=== PATIENT | female | born 1935 | race Caucasian/White ===

== ENCOUNTER 2016-11-20 07:15 | Inpatient (IN) | payer OTHER ==
[~2016-11-20] VITALS: Ht 142.2 cm; Wt 51.4 kg
[2016-11-20] MEDS ORDERED: LOSA50TA37 PO (07:21)
[2016-11-20] MEDS ORDERED: LEVO75 PO (07:21)
[2016-11-20] MEDS ORDERED: MEMA5 PO (07:21)
[2016-11-20] MEDS ORDERED: ASPI-556 PO (07:21)
[2016-11-20] MEDS ORDERED: SIMV-260 PO (07:21)
[2016-11-20] MEDS ORDERED: ZOLP5 PO (07:21)
[2016-11-20] MEDS ORDERED: ALBU8HFA4 IH (07:21)
[2016-11-20] MEDS ORDERED: OMEP20 PO (07:21)
[2016-11-20] MEDS ORDERED: ALBUTEROL SULFATE 2.5 MG/0.5 ML NEB SOLUTION NEB ONE (08:00)
[2016-11-20] MEDS ORDERED: MethylPREDNISolone SOD SUCC 125 MG/2 ML VIAL IVP ONE (08:00)
[2016-11-20] MEDS ORDERED: IPRATROPIUM BROMIDE 0.5 MG/2.5 ML NEB SOLUTION NEB ONE (08:00)
[2016-11-20 08:16] LABS: BASOPHILS % (AUTO) 0.2 % (0.0-2.0); EOSINOPHILS % (AUTO) 1.7 % (1.0-6.0); HEMATOCRIT 37.7 % (36-46); HEMOGLOBIN 12.3 g/dL (12.0-16.0); LYMPHOCYTES # (AUTO) 1.7 K/uL (1.0-4.8); LYMPHOCYTES % (AUTO) 17.1 % (22.0-44.0); MEAN CORPUSCULAR HEMOGLOBIN 29.1 pg (26.0-34.0); MEAN CORPUSCULAR HGB CONC 32.7 G/dL (31.0-37.0); MEAN CORPUSCULAR VOLUME 89 fL (80-100); MONOCYTES # (AUTO) 0.8 K/uL (0.1-1.0); MONOCYTES % (AUTO) 8.5 % (2.0-9.0); NEUTROPHILS # (AUTO) 7.1 K/uL (1.8-7.7); NEUTROPHILS % (AUTO) 72.5 % (40.0-70.0); PLATELET COUNT (AUTO) 314 K/uL (150-450); RED BLOOD CELL COUNT(AUTO) 4.24 MIL/uL (4.00-5.20); RED CELL DISTRIBUTION WIDTH 13.7 % (11.5-14.5); WHITE BLOOD COUNT (AUTO) 9.9 K/uL (4.5-11.0)
[2016-11-20 08:23] LABS: ANION GAP 5 mmol/L (8-16); CALCIUM, TOTAL 8.5 mg/dL (8.8-10.5); CARBON DIOXIDE 33 mmol/L (22-29); CHLORIDE 101 mmol/L (98-107); CREATININE 0.89 mg/dL (0.60-1.30); GLOMERULAR FILTR. RATE CALC > 60 mL/min (>60); POTASSIUM 3.7 mmol/L (3.5-5.1); SODIUM SERUM 139 mmol/L (136-145); UREA NITROGEN, BLOOD 17 mg/dL (7-18)
[2016-11-20 08:25] LABS: PROTHROMBIN TIME 10.7 SEC (9.4-11.6)
[2016-11-20 08:29] LABS: ALANINE AMINOTRANSFERASE 32 U/L (12-78); ALBUMIN 3.1 g/dL (3.4-5.0); ASPARTATE AMINOTRANSFERASE 27 U/L (15-37); BILIRUBIN,TOTAL 0.7 mg/dL (0.1-1.0); CREATINE KINASE, TOTAL 50 U/L (26-192); TOTAL PROTEIN, SERUM 6.6 g/dL (6.4-8.2)
[2016-11-20 08:34] LABS: B-TYPE NATRIURETIC PEPTIDE 398 pg/mL (0-100)
[2016-11-20] MEDS ORDERED: ZOLPIDEM TARTRATE 5 MG TABLET PO PRN (10:00)
[2016-11-20] MEDS: IPRATROPIUM BROMIDE 0.5 MG/2.5 ML NEB SOLUTION NEB SCH ×2 (10:00→16:15)
[2016-11-20] MEDS ORDERED: ALBUTEROL SULFATE 2.5 MG/0.5 ML NEB SOLUTION NEB PRN (10:00)
[2016-11-20] MEDS ORDERED: ACETAMINOPHEN 325 MG TABLET PO PRN (10:00)
[2016-11-20] MEDS ORDERED: ONDANSETRON HCL 4 MG/2 ML VIAL IVP PRN (10:00)
[2016-11-20] MEDS ORDERED: MAGNESIUM HYDROXIDE SUSPENSION 30 ML UDCUP PO PRN (10:00)
[2016-11-20] MEDS ORDERED: OxyCODONE HCL/ACETAMINOPHEN 5-325 MG TABLET PO PRN (10:00)
[2016-11-20] MEDS ORDERED: BISACODYL 10 MG RECTAL RECTAL SUPPOSITORY PR PRN (10:00)
[2016-11-20] MEDS: ALBUTEROL SULFATE 2.5 MG/0.5 ML NEB SOLUTION NEB SCH ×2 (10:00→16:15)
[2016-11-20 10:01] LABS: APPEARANCE,URINE CLEAR (CLEAR); GLUCOSE, URINE (UA) NEGATIVE (NEGATIVE); KETONES,URINE NEGATIVE (NEGATIVE); LEUKOCYTE ESTERASE ,URINE NEGATIVE (NEGATIVE); OCCULT BLOOD,URINE NEGATIVE (NEGATIVE); PROTEIN,URINE NEGATIVE (NEGATIVE)
[2016-11-20 10:05] LABS: ADD UA MICROSCOPIC NO
[2016-11-20] MEDS ORDERED: 0.9% SODIUM CHLORIDE 5 ML NEB SOLUTION NEB ONE (10:25)
[2016-11-20] MEDS ORDERED: CloNIDine HCL 0.2 MG TABLET PO ONE (11:00)
[2016-11-20] MEDS ORDERED: LEVOFLOXACIN 500 MG/D5% WATER 100 ML IV ONE (11:00)
[2016-11-20] MEDS ORDERED: LORazepam 1 MG TABLET PO ONE (13:45)
[2016-11-20] MEDS ORDERED: SODIUM CHLORIDE 0.9% 1,000 ML IV ONE ×2 (15:14→17:35)
[2016-11-20 15:24] VITALS: BP 86/47
[2016-11-20] MEDS ORDERED: SODIUM CHLORIDE 0.9% 500 ML IV ONE (17:30)
[2016-11-20] MEDS: HEPARIN SODIUM,PORCINE 5,000 UNITS/ML VIAL SQ SCH (18:11)
[2016-11-20 18:37] VITALS: BP 137/57
[2016-11-20 18:39] VITALS: BP 137/57
[2016-11-20 20:52] VITALS: BP 164/82
[2016-11-20 23:39] VITALS: BP 152/85
[2016-11-21] VITALS (7 sets, daily range): BP systolic 130–182; BP diastolic 64–85
[2016-11-21] MEDS: HEPARIN SODIUM,PORCINE 5,000 UNITS/ML VIAL SQ SCH ×4 (00:04→17:03)
[2016-11-21] MEDS: ALBUTEROL SULFATE 2.5 MG/0.5 ML NEB SOLUTION NEB SCH ×4 (02:37→19:26)
[2016-11-21] MEDS: IPRATROPIUM BROMIDE 0.5 MG/2.5 ML NEB SOLUTION NEB SCH ×4 (02:37→19:26)
[2016-11-21 07:34] LABS: BASOPHILS % (AUTO) 0.6 % (0.0-2.0); EOSINOPHILS % (AUTO) 0 % (1.0-6.0); HEMATOCRIT 32.3 % (36-46); HEMOGLOBIN 10.6 g/dL (12.0-16.0); LYMPHOCYTES # (AUTO) 0.9 K/uL (1.0-4.8); MEAN CORPUSCULAR HEMOGLOBIN 29.4 pg (26.0-34.0); MEAN CORPUSCULAR HGB CONC 32.8 G/dL (31.0-37.0); MEAN CORPUSCULAR VOLUME 90 fL (80-100); MONOCYTES # (AUTO) 0.5 K/uL (0.1-1.0); MONOCYTES % (AUTO) 6.7 % (2.0-9.0); NEUTROPHILS # (AUTO) 6.4 K/uL (1.8-7.7); NEUTROPHILS % (AUTO) 80.7 % (40.0-70.0); PLATELET COUNT (AUTO) 260 K/uL (150-450); RED CELL DISTRIBUTION WIDTH 13.8 % (11.5-14.5); WHITE BLOOD COUNT (AUTO) 7.9 K/uL (4.5-11.0)
[2016-11-21 08:07] LABS: ALANINE AMINOTRANSFERASE 22 U/L (12-78); ALBUMIN 2.6 g/dL (3.4-5.0); ANION GAP 8 mmol/L (8-16); ASPARTATE AMINOTRANSFERASE 18 U/L (15-37); BILIRUBIN,TOTAL 0.5 mg/dL (0.1-1.0); CALCIUM, TOTAL 7.5 mg/dL (8.8-10.5); CARBON DIOXIDE 28 mmol/L (22-29); CHLORIDE 103 mmol/L (98-107); CREATININE 0.89 mg/dL (0.60-1.30); GLOMERULAR FILTR. RATE CALC > 60 mL/min (>60); SODIUM SERUM 139 mmol/L (136-145); TOTAL PROTEIN, SERUM 5.5 g/dL (6.4-8.2); UREA NITROGEN, BLOOD 18 mg/dL (7-18)
[2016-11-21] MEDS: TIMOLOL MALEATE 0.5% 5 ML OPHTHALMIC SOLUTION OU SCH ×2 (08:29→20:07)
[2016-11-21] MEDS: PANTOPRAZOLE SODIUM 40 MG DR TABLET PO SCH (08:30)
[2016-11-21] MEDS ORDERED: SODIUM CHLORIDE 0.9% 250 ML IV ONE (10:59)
[2016-11-21] MEDS: LOSARTAN POTASSIUM 50 MG TABLET PO SCH (11:01)
[2016-11-21] MEDS: LEVOTHYROXINE SODIUM 75 MCG TABLET PO SCH (11:01)
[2016-11-21] MEDS: LEVOFLOXACIN 500 MG/D5% WATER 100 ML IV SCH (11:01)
[2016-11-21] MEDS ORDERED: SIMVASTATIN 20 MG TABLET PO SCH (21:00)
[2016-11-21] MEDS ORDERED: LATANOPROST 0.005% 2.5 ML OPHTHALMIC SOLUTION OU SCH (21:00)
[2016-11-22] MEDS: HEPARIN SODIUM,PORCINE 5,000 UNITS/ML VIAL SQ SCH ×2 (00:04→08:42)
[2016-11-22] MEDS: IPRATROPIUM BROMIDE 0.5 MG/2.5 ML NEB SOLUTION NEB SCH ×2 (02:19→07:17)
[2016-11-22] MEDS: ALBUTEROL SULFATE 2.5 MG/0.5 ML NEB SOLUTION NEB SCH ×2 (02:19→07:17)
[2016-11-22 05:08] VITALS: BP 157/91
[2016-11-22] MEDS: LEVOTHYROXINE SODIUM 75 MCG TABLET PO SCH (05:38)
[2016-11-22 06:24] LABS: BASOPHILS # (AUTO) 0.09 K/uL (0.00-0.20); BASOPHILS % (AUTO) 0.7 % (0.0-2.0); EOSINOPHILS % (AUTO) 2.59 % (1.0-6.0); HEMATOCRIT 35.6 % (36-46); HEMOGLOBIN 11.8 g/dL (12.0-16.0); LYMPHOCYTES % (AUTO) 17.5 % (22.0-44.0); MEAN CORPUSCULAR HEMOGLOBIN 29.3 pg (26.0-34.0); MEAN CORPUSCULAR HGB CONC 33.1 G/dL (31.0-37.0); MEAN CORPUSCULAR VOLUME 89 fL (80-100); MONOCYTES # (AUTO) 0.6 K/uL (0.1-1.0); MONOCYTES % (AUTO) 4.9 % (2.0-9.0); NEUTROPHILS # (AUTO) 8.7 K/uL (1.8-7.7); NEUTROPHILS % (AUTO) 74.3 % (40.0-70.0); PLATELET COUNT (AUTO) 290 K/uL (150-450); RED BLOOD CELL COUNT(AUTO) 4.02 MIL/uL (4.00-5.20); RED CELL DISTRIBUTION WIDTH 13.4 % (11.5-14.5); WHITE BLOOD COUNT (AUTO) 11.7 K/uL (4.5-11.0)
[2016-11-22 07:00] LABS: IRON, SERUM 92 mcg/dL (50-175); TOTAL IRON BINDING CAPACITY 189 mcg/dL (250-450)
[2016-11-22 07:06] VITALS: BP 188/83
[2016-11-22 07:07] LABS: ALANINE AMINOTRANSFERASE 14 U/L (12-78); ALBUMIN 2.6 g/dL (3.4-5.0); ANION GAP 5 mmol/L (8-16); ASPARTATE AMINOTRANSFERASE 17 U/L (15-37); BILIRUBIN,TOTAL 0.5 mg/dL (0.1-1.0); CARBON DIOXIDE 31 mmol/L (22-29); CHLORIDE 102 mmol/L (98-107); CREATININE 0.86 mg/dL (0.60-1.30); GLOMERULAR FILTR. RATE CALC > 60 mL/min (>60); POTASSIUM 3.8 mmol/L (3.5-5.1); SODIUM SERUM 138 mmol/L (136-145); THYROID STIMULATING HORMONE 7.44 uIU/mL (0.36-3.74); TOTAL PROTEIN, SERUM 5.5 g/dL (6.4-8.2); UREA NITROGEN, BLOOD 15 mg/dL (7-18)
[2016-11-22] MEDS: TIMOLOL MALEATE 0.5% 5 ML OPHTHALMIC SOLUTION OU SCH (08:45)
[2016-11-22] MEDS: LOSARTAN POTASSIUM 50 MG TABLET PO SCH (08:46)
[2016-11-22] MEDS: PANTOPRAZOLE SODIUM 40 MG DR TABLET PO SCH (08:46)
[2016-11-22] MEDS ORDERED: ASPIRIN 81 MG EC TABLET PO SCH (09:00)
[2016-11-22] MEDS ORDERED: MEMANTINE HCL 5 MG TABLET PO SCH (09:00)
[2016-11-22] MEDS: LEVOFLOXACIN 500 MG/D5% WATER 100 ML IV SCH (10:26)
[2016-11-22 11:13] VITALS: BP 155/77
[2016-11-22] MEDS ORDERED: LEVO500 PO (11:59)
== END 2016-11-22 14:15 | disposition home or self-care (01) | DRG 140 ==
LOC: EMS 07:17 → AHU 12:49 → 5N 20:25
PROVIDERS: ADMIT Hospitalist; ATTEND Hospitalist
DX: J44.1 Chronic obstructive pulmonary disease with (acute) exacerbation (principal); E44.0 Moderate protein-calorie malnutrition; F03.90 Unspecified dementia, unspecified severity, without behavioral disturbance, psychotic disturbance, mood disturbance, and anxiety; J44.0 Chronic obstructive pulmonary disease with (acute) lower respiratory infection; J20.9 Acute bronchitis, unspecified; J45.909 Unspecified asthma, uncomplicated; F41.9 Anxiety disorder, unspecified; E78.5 Hyperlipidemia, unspecified; I10 Essential (primary) hypertension; E03.9 Hypothyroidism, unspecified; H40.9 Unspecified glaucoma; D64.9 Anemia, unspecified; I25.10 Atherosclerotic heart disease of native coronary artery without angina pectoris; I70.0 Atherosclerosis of aorta; Z79.899 Other long term (current) drug therapy; Z79.82 Long term (current) use of aspirin; Z90.49 Acquired absence of other specified parts of digestive tract; Z90.710 Acquired absence of both cervix and uterus
CPT/HCPCS: 82607; 82746; 83540; 83550; 84443; 87081; 93005; 94640; 96365; 96375; 99285; J1644; J1956; J2930; J7030; J7040; J7050

== ENCOUNTER 2017-09-08 23:45 | Inpatient (IN) | payer OTHER ==
[~2017-09-08] VITALS: Ht 152.4 cm; Wt 57.2 kg
[~2017-09-08 23:45] MED LIST: ALBU8HFA4 IH; ALEN70TA48 PO; ASPI-556 PO; ATOR10TA84 PO; DONE5TAB5 PO; LEVO500 PO; LEVO75 PO; LOSA50TA37 PO; MEMA5 PO; OMEP20 PO; QUET25TA PO; SIMV-260 PO; TEMA15CA PO; ZOLP5 PO
[2017-09-09] MEDS ORDERED: 0.9% SODIUM CHLORIDE 5 ML NEB SOLUTION NEB ONE
[2017-09-09] MEDS ORDERED: IPRATROPIUM BROMIDE 0.5 MG/2.5 ML NEB SOLUTION NEB ONE
[2017-09-09] MEDS ORDERED: ALBUTEROL SULFATE 5 MG/ML 20 ML NEB SOLN [BULK] NEB ONE
[2017-09-09 00:06] LABS: BASOPHILS # (AUTO) 0.03 K/uL (0.00-0.20); BASOPHILS % (AUTO) 0.5 % (0.0-2.0); EOSINOPHILS # (AUTO) 0.27 K/uL (0.00-0.70); EOSINOPHILS % (AUTO) 4.81 % (1.0-6.0); HEMATOCRIT 31.4 % (36-46); HEMOGLOBIN 10.2 g/dL (12.0-16.0); LYMPHOCYTES # (AUTO) 1.4 K/uL (1.0-4.8); LYMPHOCYTES % (AUTO) 24.7 % (22.0-44.0); MEAN CORPUSCULAR HGB CONC 32.4 G/dL (31.0-37.0); MEAN CORPUSCULAR VOLUME 92 fL (80-100); MONOCYTES # (AUTO) 0.6 K/uL (0.1-1.0); MONOCYTES % (AUTO) 10.9 % (2.0-9.0); NEUTROPHILS # (AUTO) 3.3 K/uL (1.8-7.7); NEUTROPHILS % (AUTO) 59.1 % (40.0-70.0); PLATELET COUNT (AUTO) 190 K/uL (150-450); RED BLOOD CELL COUNT(AUTO) 3.39 MIL/uL (4.00-5.20); RED CELL DISTRIBUTION WIDTH 14.4 % (11.5-14.5); WHITE BLOOD COUNT (AUTO) 5.6 K/uL (4.5-11.0)
[2017-09-09 00:15] LABS: INR 1.1 (0.9-1.1); PROTHROMBIN TIME 11.1 SEC (9.4-11.6)
[2017-09-09 00:16] LABS: ANION GAP 0 mmol/L (8-16); CALCIUM, TOTAL 7.8 mg/dL (8.8-10.5); CARBON DIOXIDE 34 mmol/L (22-29); CHLORIDE 108 mmol/L (98-107); CREATININE 1.04 mg/dL (0.60-1.30); GLOMERULAR FILTR. RATE CALC 51 mL/min (>60); POTASSIUM 4.7 mmol/L (3.5-5.1); SODIUM SERUM 142 mmol/L (136-145); UREA NITROGEN, BLOOD 30 mg/dL (7-18)
[2017-09-09 00:22] LABS: ALANINE AMINOTRANSFERASE 17 U/L (12-78); ALBUMIN 2.9 g/dL (3.4-5.0); ASPARTATE AMINOTRANSFERASE 16 U/L (15-37); BILIRUBIN,TOTAL 0.2 mg/dL (0.1-1.0); CREATINE KINASE, TOTAL 41 U/L (26-192); TOTAL PROTEIN, SERUM 5.6 g/dL (6.4-8.2)
[2017-09-09 00:29] LABS: B-TYPE NATRIURETIC PEPTIDE 119 pg/mL (0-100)
[2017-09-09 00:43] LABS: APPEARANCE,URINE CLEAR (CLEAR); GLUCOSE, URINE (UA) NEGATIVE (NEGATIVE); KETONES,URINE NEGATIVE (NEGATIVE); LEUKOCYTE ESTERASE ,URINE NEGATIVE (NEGATIVE); OCCULT BLOOD,URINE NEGATIVE (NEGATIVE); PH,URINE 5.5 (5.0-8.0); PROTEIN,URINE NEGATIVE (NEGATIVE)
[2017-09-09 00:46] LABS: ADD UA MICROSCOPIC NO
[2017-09-09] MEDS ORDERED: MethylPREDNISolone SOD SUCC 125 MG/2 ML VIAL IVP ONE (01:30)
[2017-09-09] MEDS ORDERED: ACETAMINOPHEN 325 MG TABLET PO PRN ×2 (02:15→08:15)
[2017-09-09] MEDS ORDERED: ONDANSETRON HCL 4 MG/2 ML VIAL IVP PRN (02:15)
[2017-09-09] MEDS ORDERED: 0.9% SODIUM CHLORIDE 10 ML SYRINGE IVP PRN (02:15)
[2017-09-09] MEDS ORDERED: MAGNESIUM HYDROXIDE SUSPENSION 30 ML UDCUP PO PRN (08:15)
[2017-09-09 08:37] VITALS: BP 156/79
[2017-09-09] MEDS: CALCIUM CIT/VITAMIN D3 200 MG-250 UNITS TABLET PO SCH ×2 (10:01→20:45)
[2017-09-09] MEDS: PANTOPRAZOLE SODIUM 40 MG DR TABLET PO SCH (10:02)
[2017-09-09] MEDS: HEPARIN SODIUM,PORCINE 5,000 UNITS/ML VIAL SQ SCH ×2 (10:02→20:44)
[2017-09-09] MEDS: DOCUSATE SODIUM 100 MG CAPSULE PO SCH ×2 (10:02→20:44)
[2017-09-09] MEDS: ASPIRIN 81 MG CHEWABLE TABLET PO SCH (10:02)
[2017-09-09] MEDS ORDERED: SODIUM CHLORIDE 0.9% 100 ML ONE (10:38)
[2017-09-09] MEDS: ALBUTEROL SULFATE 2.5 MG/0.5 ML NEB SOLUTION NEB SCH ×4 (11:00→23:23)
[2017-09-09] MEDS: IPRATROPIUM BROMIDE 0.5 MG/2.5 ML NEB SOLUTION NEB SCH ×4 (11:00→23:23)
[2017-09-09] MEDS: AZITHROMYCIN 500 MG/NS 250 ML IV SCH (11:03)
[2017-09-09 11:29] VITALS: BP 122/64
[2017-09-09] MEDS ORDERED: MethylPREDNISolone SOD SUCC 125 MG/2 ML VIAL IVP SCH (12:00)
[2017-09-09 16:30] VITALS: BP 163/86
[2017-09-09] MEDS: MethylPREDNISolone SOD SUCC 125 MG/2 ML VIAL IVP SCH (17:11)
[2017-09-09] MEDS: AmLODIPine BESYLATE 5 MG TABLET PO SCH (18:20)
[2017-09-09 20:19] VITALS: BP 146/75
[2017-09-09] MEDS ORDERED: QUEtiapine FUMARATE 25 MG TABLET PO SCH (21:00)
[2017-09-09] MEDS ORDERED: TEMAZEPAM 15 MG CAPSULE PO SCH (21:00)
[2017-09-10] MEDS: MethylPREDNISolone SOD SUCC 125 MG/2 ML VIAL IVP SCH ×3 (00:02→12:11)
[2017-09-10 00:16] VITALS: BP 153/84
[2017-09-10] MEDS: ALBUTEROL SULFATE 2.5 MG/0.5 ML NEB SOLUTION NEB SCH ×4 (03:55→13:36)
[2017-09-10] MEDS: IPRATROPIUM BROMIDE 0.5 MG/2.5 ML NEB SOLUTION NEB SCH ×4 (03:55→13:36)
[2017-09-10 04:52] VITALS: BP 165/78
[2017-09-10] MEDS: HEPARIN SODIUM,PORCINE 5,000 UNITS/ML VIAL SQ SCH (08:19)
[2017-09-10] MEDS: DOCUSATE SODIUM 100 MG CAPSULE PO SCH (08:19)
[2017-09-10] MEDS: CALCIUM CIT/VITAMIN D3 200 MG-250 UNITS TABLET PO SCH (08:19)
[2017-09-10] MEDS: AmLODIPine BESYLATE 5 MG TABLET PO SCH (08:20)
[2017-09-10] MEDS: AZITHROMYCIN 500 MG/NS 250 ML IV SCH (08:20)
[2017-09-10] MEDS: PANTOPRAZOLE SODIUM 40 MG DR TABLET PO SCH (08:20)
[2017-09-10] MEDS: ASPIRIN 81 MG CHEWABLE TABLET PO SCH (08:20)
[2017-09-10 08:54] VITALS: BP 119/70
[2017-09-10 12:19] VITALS: BP 120/56
== END 2017-09-10 15:30 | disposition home or self-care (01) | DRG 140 ==
LOC: EMS 23:46 → 5S 09-09 04:40
PROVIDERS: ADMIT Internal Medicine; ATTEND Internal Medicine
PROC: 5A09357 Assistance with Respiratory Ventilation, Less than 24 Consecutive Hours, Continuous Positive Airway Pressure (ICD-10-PCS; principal; 2017-09-09)
DX: J44.1 Chronic obstructive pulmonary disease with (acute) exacerbation (principal); J96.01 Acute respiratory failure with hypoxia; E03.9 Hypothyroidism, unspecified; E78.5 Hyperlipidemia, unspecified; F02.80 Dementia in other diseases classified elsewhere, unspecified severity, without behavioral disturbance, psychotic disturbance, mood disturbance, and anxiety; G30.9 Alzheimer's disease, unspecified; I10 Essential (primary) hypertension; Z90.49 Acquired absence of other specified parts of digestive tract; Z90.710 Acquired absence of both cervix and uterus
CPT/HCPCS: 82306; 93005; 94640; 94644; 94660; 96374; 97162; 99291; J0456; J1644; J2930; J7050

== ENCOUNTER 2018-03-04 17:40 | Inpatient (IN) | payer OTHER ==
[~2018-03-04] VITALS: Ht 142.2 cm; Wt 56.0 kg
[~2018-03-04 17:40] MED LIST changes: -ALBU8HFA4 IH; +AZIT250T9 PO; -DONE5TAB5 PO; -LEVO500 PO; -LEVO75 PO; +MEMA10TA11 PO; -MEMA5 PO; +PRED20 PO; -SIMV-260 PO; -ZOLP5 PO
[2018-03-04] MEDS ORDERED: DONE5TAB5 PO (17:52)
[2018-03-04] MEDS ORDERED: MONT10TA21 PO (17:52)
[2018-03-04] MEDS ORDERED: CLOP75TA32 PO (17:52)
[2018-03-04] MEDS ORDERED: LEVO88TA7 PO (17:52)
[2018-03-04] MEDS ORDERED: ALBU8HFA IH (17:52)
[2018-03-04] MEDS ORDERED: MECL-111 PO (17:52)
[2018-03-04] MEDS ORDERED: CALC-1009 PO (17:52)
[2018-03-04] MEDS ORDERED: UMEC62.5 IH (17:52)
[2018-03-04] MEDS ORDERED: SODIUM CHLORIDE 0.9% 1,000 ML IV ONE (18:30)
[2018-03-04] MEDS ORDERED: ONDANSETRON HCL 4 MG/2 ML VIAL IVP ONE (18:30)
[2018-03-04 18:59] LABS: BASOPHILS % (AUTO) 0.8 % (0.0-2.0); HEMATOCRIT 38.3 % (36-46); LYMPHOCYTES # (AUTO) 1.5 K/uL (1.0-4.8); LYMPHOCYTES % (AUTO) 17.3 % (22.0-44.0); MEAN CORPUSCULAR HEMOGLOBIN 29.6 pg (26.0-34.0); MEAN CORPUSCULAR HGB CONC 33.9 G/dL (31.0-37.0); MEAN CORPUSCULAR VOLUME 87 fL (80-100); MONOCYTES # (AUTO) 0.7 K/uL (0.1-1.0); MONOCYTES % (AUTO) 7.8 % (2.0-9.0); NEUTROPHILS # (AUTO) 6.2 K/uL (1.8-7.7); NEUTROPHILS % (AUTO) 72.1 % (40.0-70.0); PLATELET COUNT (AUTO) 279 K/uL (150-450); RED BLOOD CELL COUNT(AUTO) 4.39 MIL/uL (4.00-5.20); RED CELL DISTRIBUTION WIDTH 13.6 % (11.5-14.5)
[2018-03-04 19:06] LABS: CALCIUM, TOTAL 8.6 mg/dL (8.8-10.5); CREATININE 0.99 mg/dL (0.60-1.30); POTASSIUM 4.3 mmol/L (3.5-5.1)
[2018-03-04 19:09] LABS: PROTHROMBIN TIME 10.3 SEC (9.4-11.6)
[2018-03-04 19:13] LABS: ALBUMIN 3.7 g/dL (3.4-5.0); BILIRUBIN,TOTAL 0.7 mg/dL (0.1-1.0); TOTAL PROTEIN, SERUM 7.1 g/dL (6.4-8.2)
[2018-03-04] MEDS ORDERED: BARIUM SULFATE 0.1% SUSPENSION 450 ML BOTTLE PO ONE (19:45)
[2018-03-04] MEDS ORDERED: IOVERSOL 320 MG/ML 100 ML VIAL ONE (20:01)
[2018-03-04] MEDS ORDERED: ACETAMINOPHEN 325 MG TABLET PO PRN ×2 (20:15→21:15)
[2018-03-04] MEDS ORDERED: 0.9% SODIUM CHLORIDE 10 ML SYRINGE IVP PRN (20:15)
[2018-03-04] MEDS ORDERED: ONDANSETRON HCL 4 MG/2 ML VIAL IVP PRN ×2 (20:15→21:15)
[2018-03-04] MEDS ORDERED: IPRATROPIUM BROMIDE 0.5 MG/2.5 ML NEB SOLUTION NEB PRN (21:15)
[2018-03-04] MEDS ORDERED: MAGNESIUM HYDROXIDE SUSPENSION 30 ML UDCUP PO PRN (21:15)
[2018-03-04] MEDS ORDERED: DEXTROSE 5%-0.45% SODIUM CHL 1,000 ML IV SCH (21:15)
[2018-03-04] MEDS ORDERED: ALBUTEROL SULFATE 2.5 MG/0.5 ML NEB SOLUTION NEB PRN (21:15)
[2018-03-04] MEDS ORDERED: LORazepam 2 MG/ML VIAL IVP ONE (23:00)
[2018-03-04 23:35] VITALS: BP 128/69
[2018-03-05 04:45] VITALS: BP 161/88
[2018-03-05 07:49] VITALS: BP 144/80
[2018-03-05] MEDS ORDERED: DOCUSATE SODIUM 100 MG CAPSULE PO SCH (09:00)
[2018-03-05] MEDS ORDERED: HEPARIN SODIUM,PORCINE 5,000 UNITS/ML VIAL SQ SCH (09:00)
[2018-03-05] MEDS ORDERED: PANTOPRAZOLE SODIUM 40 MG/VIAL IVP SCH ×2 (09:00→09:15)
[2018-03-05] MEDS ORDERED: SODIUM CHLORIDE 0.9% 1,000 ML IV ONE (09:58)
[2018-03-05] MEDS ORDERED: LIDOCAINE HCL/PF 2% 5 ML VIAL INJ ONE (12:00)
[2018-03-05] MEDS ORDERED: PROPOFOL 1% 20 ML VIAL IVP ONE (12:00)
== END 2018-03-05 13:35 | disposition home or self-care (01) | DRG 254 ==
LOC: EMS 17:41 → UNDOADMIN 19:57 → 6N 19:57
PROVIDERS: ADMIT Internal Medicine; ATTEND Internal Medicine
PROC: 0DC58ZZ Extirpation of Matter from Esophagus, Via Natural or Artificial Opening Endoscopic (ICD-10-PCS; principal; 2018-03-05 09:30)
DX: T18.128A Food in esophagus causing other injury, initial encounter (principal); J44.9 Chronic obstructive pulmonary disease, unspecified; F03.90 Unspecified dementia, unspecified severity, without behavioral disturbance, psychotic disturbance, mood disturbance, and anxiety; K29.60 Other gastritis without bleeding; R13.10 Dysphagia, unspecified; I10 Essential (primary) hypertension; I25.10 Atherosclerotic heart disease of native coronary artery without angina pectoris; R07.0 Pain in throat; E78.00 Pure hypercholesterolemia, unspecified; K20.9 Esophagitis, unspecified; M81.0 Age-related osteoporosis without current pathological fracture; F41.9 Anxiety disorder, unspecified; Z90.49 Acquired absence of other specified parts of digestive tract; Z90.710 Acquired absence of both cervix and uterus; Z79.82 Long term (current) use of aspirin; Z79.899 Other long term (current) drug therapy; Z79.02 Long term (current) use of antithrombotics/antiplatelets; Z79.51 Long term (current) use of inhaled steroids; Z87.891 Personal history of nicotine dependence; X58.XXXA Exposure to other specified factors, initial encounter; Y93.89 Activity, other specified; Y92.89 Other specified places as the place of occurrence of the external cause; Y99.8 Other external cause status
CPT/HCPCS: 74022; 74177; 93005; 96374; 96375; 99285; C9113; J2060; J2405; J2704; J3490; J7030

== ENCOUNTER 2018-11-14 17:11 | Inpatient (IN) | payer OTHER ==
[~2018-11-14] VITALS: Ht 142.2 cm; Wt 56.5 kg
[~2018-11-14 17:11] MED LIST changes: +ALBU8HFA IH; +ALEN70TA10 PO; -ALEN70TA48 PO; -ASPI-556 PO; -AZIT250T9 PO; +CALC-1009 PO; +CLOP75TA32 PO; +DONE5TAB5 PO; +LEVO88TA7 PO; -LOSA50TA37 PO; +LOSA50TA64 PO; +MECL-111 PO; +MONT10TA21 PO; -PRED20 PO; -TEMA15CA PO; +UMEC62.5 IH
[2018-11-14] MEDS ORDERED: 0.9% SODIUM CHLORIDE 10 ML SYRINGE IVP PRN ×2 (17:30→19:45)
[2018-11-14 17:48] LABS: BASOPHILS % (AUTO) 0.4 % (0.0-2.0); EOSINOPHILS % (AUTO) 1.2 % (1.0-6.0); HEMATOCRIT 36.7 % (36-46); HEMOGLOBIN 12.3 g/dL (12.0-16.0); LYMPHOCYTES # (AUTO) 0.9 K/uL (1.0-4.8); LYMPHOCYTES % (AUTO) 9.8 % (22.0-44.0); MEAN CORPUSCULAR HEMOGLOBIN 28.4 pg (26.0-34.0); MEAN CORPUSCULAR HGB CONC 33.4 G/dL (31.0-37.0); MEAN CORPUSCULAR VOLUME 85 fL (80-100); MONOCYTES # (AUTO) 1.2 K/uL (0.1-1.0); MONOCYTES % (AUTO) 12.2 % (2.0-9.0); NEUTROPHILS # (AUTO) 7.4 K/uL (1.8-7.7); NEUTROPHILS % (AUTO) 76.4 % (40.0-70.0); PLATELET COUNT (AUTO) 196 K/uL (150-450); RED BLOOD CELL COUNT(AUTO) 4.31 MIL/uL (4.00-5.20); RED CELL DISTRIBUTION WIDTH 14.1 % (11.5-14.5)
[2018-11-14] MEDS ORDERED: ACETAMINOPHEN 500 MG TABLET PO ONE (18:00)
[2018-11-14 18:02] LABS: ANION GAP 1 mmol/L (8-16); CALCIUM, TOTAL 9.1 mg/dL (8.8-10.5); CARBON DIOXIDE 33 mmol/L (22-29); CHLORIDE 101 mmol/L (98-107); CREATININE 0.87 mg/dL (0.60-1.30); GLUCOSE,RANDOM 103 mg/dL (70-110); POTASSIUM 4.8 mmol/L (3.5-5.1); SODIUM SERUM 135 mmol/L (136-145); UREA NITROGEN, BLOOD 22 mg/dL (7-18)
[2018-11-14 18:03] LABS: GLOMERULAR FILTR. RATE CALC > 60 mL/min (>60)
[2018-11-14 18:06] LABS: APPEARANCE,URINE CLEAR (CLEAR); BILIRUBIN,URINE NEGATIVE (NEGATIVE); GLUCOSE, URINE (UA) NEGATIVE (NEGATIVE); KETONES,URINE NEGATIVE (NEGATIVE); LEUKOCYTE ESTERASE ,URINE NEGATIVE (NEGATIVE); NITRATE,URINE NEGATIVE (NEGATIVE); OCCULT BLOOD,URINE NEGATIVE (NEGATIVE); PH,URINE 5.5 (5.0-8.0); PROTEIN,URINE NEGATIVE (NEGATIVE)
[2018-11-14 18:10] LABS: LACTIC ACID 0.6 mmol/L (0.4-2.0)
[2018-11-14 18:17] LABS: ALANINE AMINOTRANSFERASE 15 U/L (12-78); ALBUMIN 3.2 g/dL (3.4-5.0); ALKALINE PHOSPHATASE 106 U/L (46-116); ASPARTATE AMINOTRANSFERASE 21 U/L (15-37); BILIRUBIN,TOTAL 1.2 mg/dL (0.1-1.0); CREATINE KINASE, TOTAL ONLY 35 U/L (26-192); TOTAL PROTEIN, SERUM 6.8 g/dL (6.4-8.2)
[2018-11-14 18:24] LABS: B-TYPE NATRIURETIC PEPTIDE 187 pg/mL (0-100)
[2018-11-14 18:37] LABS: INFLUENZA TYPE A NEGATIVE FOR TYPE A (NEGATIVE); INFLUENZA TYPE B NEGATIVE FOR TYPE B (NEGATIVE)
[2018-11-14 18:55] LABS: INR 1.1 (0.9-1.1); PROTHROMBIN TIME 11.3 SEC (9.4-11.6)
[2018-11-14] MEDS ORDERED: OSELTAMIVIR PHOSPHATE 75 MG CAPSULE PO ONE (19:45)
[2018-11-14] MEDS ORDERED: SODIUM CHLORIDE 0.9% 1,000 ML IV ONE (19:45)
[2018-11-14] MEDS ORDERED: ONDANSETRON HCL 4 MG/2 ML VIAL IVP PRN ×2 (19:45→21:30)
[2018-11-14] MEDS ORDERED: CefTRIAXone 1 GM/DEXTROSE 50 ML IV ONE (19:45)
[2018-11-14] MEDS ORDERED: ACETAMINOPHEN 325 MG TABLET PO PRN (19:45)
[2018-11-14] MEDS ORDERED: OxyCODONE HCL/ACETAMINOPHEN 5-325 MG TABLET PO PRN (21:30)
[2018-11-14] MEDS ORDERED: MAGNESIUM HYDROXIDE SUSPENSION 30 ML UDCUP PO PRN (21:30)
[2018-11-14] MEDS ORDERED: ZOLPIDEM TARTRATE 5 MG TABLET PO PRN (21:30)
[2018-11-14] MEDS ORDERED: BISACODYL 10 MG RECTAL RECTAL SUPPOSITORY PR PRN (21:30)
[2018-11-14 22:00] VITALS: BP 101/40
[2018-11-14] MEDS: SODIUM CHLORIDE 0.9% 1,000 ML IV SCH (23:34)
[2018-11-14] MEDS: DONEPEZIL HCL 5 MG TABLET PO SCH (23:34)
[2018-11-14] MEDS: MEMANTINE HCL 10 MG TABLET PO SCH (23:34)
[2018-11-14 23:45] VITALS: BP 119/66
[2018-11-15 03:59] VITALS: BP 121/49
[2018-11-15] MEDS: LEVOTHYROXINE SODIUM 88 MCG TABLET PO SCH (06:40)
[2018-11-15 07:03] LABS: BASOPHILS % (AUTO) 0.4 % (0.0-2.0); EOSINOPHILS % (AUTO) 1.7 % (1.0-6.0); HEMATOCRIT 34.8 % (36-46); HEMOGLOBIN 11.4 g/dL (12.0-16.0); LYMPHOCYTES % (AUTO) 10.4 % (22.0-44.0); MEAN CORPUSCULAR HEMOGLOBIN 28.6 pg (26.0-34.0); MEAN CORPUSCULAR HGB CONC 32.8 G/dL (31.0-37.0); MEAN CORPUSCULAR VOLUME 87 fL (80-100); MONOCYTES % (AUTO) 10.7 % (2.0-9.0); NEUTROPHILS # (AUTO) 7.1 K/uL (1.8-7.7); NEUTROPHILS % (AUTO) 76.8 % (40.0-70.0); PLATELET COUNT (AUTO) 161 K/uL (150-450); RED BLOOD CELL COUNT(AUTO) 3.99 MIL/uL (4.00-5.20); RED CELL DISTRIBUTION WIDTH 13.9 % (11.5-14.5)
[2018-11-15 07:18] LABS: ALANINE AMINOTRANSFERASE 13 U/L (12-78); ALBUMIN 2.7 g/dL (3.4-5.0); ALKALINE PHOSPHATASE 89 U/L (46-116); ANION GAP 4 mmol/L (8-16); ASPARTATE AMINOTRANSFERASE 19 U/L (15-37); BILIRUBIN,TOTAL 0.8 mg/dL (0.1-1.0); CALCIUM, TOTAL 8.1 mg/dL (8.8-10.5); CARBON DIOXIDE 32 mmol/L (22-29); CHLORIDE 106 mmol/L (98-107); CREATININE 0.64 mg/dL (0.60-1.30); GLOMERULAR FILTR. RATE CALC > 60 mL/min (>60); GLUCOSE,RANDOM 90 mg/dL (70-110); POTASSIUM 4.1 mmol/L (3.5-5.1); SODIUM SERUM 142 mmol/L (136-145); TOTAL PROTEIN, SERUM 5.9 g/dL (6.4-8.2)
[2018-11-15 07:32] VITALS: BP 116/56
[2018-11-15 07:37] LABS: UREA NITROGEN, BLOOD 17 mg/dL (7-18)
[2018-11-15] MEDS: SODIUM CHLORIDE 0.9% 1,000 ML IV SCH (08:26)
[2018-11-15] MEDS: CLOPIDOGREL BISULFATE 75 MG TABLET PO SCH (08:27)
[2018-11-15] MEDS: OSELTAMIVIR PHOSPHATE 75 MG CAPSULE PO SCH ×2 (08:27→20:27)
[2018-11-15] MEDS: QUEtiapine FUMARATE 25 MG TABLET PO SCH (08:27)
[2018-11-15] MEDS: MEMANTINE HCL 10 MG TABLET PO SCH ×2 (08:27→20:27)
[2018-11-15] MEDS: ATORVASTATIN CALCIUM 10 MG TABLET PO SCH (08:28)
[2018-11-15] MEDS: CALCIUM OYSTER SHELL 250 MG-VIT D3 125 UNITS TABLET PO SCH (08:28)
[2018-11-15] MEDS: MONTELUKAST SODIUM 10 MG TABLET PO SCH (08:28)
[2018-11-15] MEDS: MECLIZINE HCL 25 MG TABLET PO SCH (08:28)
[2018-11-15] MEDS: FAMOTIDINE 20 MG TABLET PO SCH (08:28)
[2018-11-15] MEDS: FLUTICASONE/VILANTEROL 200-25 MCG/INH INHALER [14] IH SCH (09:00)
[2018-11-15] MEDS: LOSARTAN POTASSIUM 50 MG TABLET PO SCH ×2 (09:00→15:57)
[2018-11-15 10:05] VITALS: BP 106/59
[2018-11-15 15:59] VITALS: BP 159/88
[2018-11-15] MEDS: ALBUTEROL SULFATE 2.5 MG/0.5 ML NEB SOLUTION NEB PRN (18:30)
[2018-11-15] MEDS: IPRATROPIUM BROMIDE 0.5 MG/2.5 ML NEB SOLUTION NEB PRN (18:31)
[2018-11-15 20:03] VITALS: BP 131/78
[2018-11-15] MEDS: ACETAMINOPHEN 325 MG TABLET PO PRN (20:26)
[2018-11-15] MEDS: DONEPEZIL HCL 5 MG TABLET PO SCH (20:26)
[2018-11-15 23:46] VITALS: BP 123/97
[2018-11-16 06:35] VITALS: BP 150/99
[2018-11-16] MEDS: LEVOTHYROXINE SODIUM 88 MCG TABLET PO SCH (06:39)
[2018-11-16 07:00] LABS: BASOPHILS % (AUTO) 0.4 % (0.0-2.0); HEMOGLOBIN 11.8 g/dL (12.0-16.0); LYMPHOCYTES # (AUTO) 0.8 K/uL (1.0-4.8); MEAN CORPUSCULAR HEMOGLOBIN 29.9 pg (26.0-34.0); MEAN CORPUSCULAR HGB CONC 34.8 G/dL (31.0-37.0); MEAN CORPUSCULAR VOLUME 86 fL (80-100); MONOCYTES # (AUTO) 1.1 K/uL (0.1-1.0); MONOCYTES % (AUTO) 11.7 % (2.0-9.0); NEUTROPHILS # (AUTO) 7.1 K/uL (1.8-7.7); NEUTROPHILS % (AUTO) 75.9 % (40.0-70.0); PLATELET COUNT (AUTO) 209 K/uL (150-450); RED BLOOD CELL COUNT(AUTO) 3.96 MIL/uL (4.00-5.20)
[2018-11-16 07:12] VITALS: BP 161/77
[2018-11-16 07:13] LABS: ANION GAP 4 mmol/L (8-16); CALCIUM, TOTAL 8.7 mg/dL (8.8-10.5); CARBON DIOXIDE 33 mmol/L (22-29); CHLORIDE 103 mmol/L (98-107); CREATININE 0.57 mg/dL (0.60-1.30); GLUCOSE,RANDOM 85 mg/dL (70-110); SODIUM SERUM 140 mmol/L (136-145); UREA NITROGEN, BLOOD 9 mg/dL (7-18)
[2018-11-16 07:14] LABS: GLOMERULAR FILTR. RATE CALC > 60 mL/min (>60)
[2018-11-16] MEDS: LOSARTAN POTASSIUM 50 MG TABLET PO SCH (08:55)
[2018-11-16] MEDS: ATORVASTATIN CALCIUM 10 MG TABLET PO SCH (08:55)
[2018-11-16] MEDS: MEMANTINE HCL 10 MG TABLET PO SCH ×2 (08:55→20:28)
[2018-11-16] MEDS: MECLIZINE HCL 25 MG TABLET PO SCH (08:55)
[2018-11-16] MEDS: CLOPIDOGREL BISULFATE 75 MG TABLET PO SCH (08:55)
[2018-11-16] MEDS: MONTELUKAST SODIUM 10 MG TABLET PO SCH (08:56)
[2018-11-16] MEDS: OSELTAMIVIR PHOSPHATE 75 MG CAPSULE PO SCH (08:56)
[2018-11-16] MEDS: QUEtiapine FUMARATE 25 MG TABLET PO SCH ×3 (08:56→20:41)
[2018-11-16] MEDS: FAMOTIDINE 20 MG TABLET PO SCH (08:56)
[2018-11-16] MEDS: CALCIUM OYSTER SHELL 250 MG-VIT D3 125 UNITS TABLET PO SCH (08:56)
[2018-11-16] MEDS: FLUTICASONE/VILANTEROL 200-25 MCG/INH INHALER [14] IH SCH (09:00)
[2018-11-16 11:36] VITALS: BP 137/74
[2018-11-16] MEDS: ALBUTEROL SULFATE 2.5 MG/0.5 ML NEB SOLUTION NEB PRN (11:55)
[2018-11-16] MEDS: IPRATROPIUM BROMIDE 0.5 MG/2.5 ML NEB SOLUTION NEB PRN (11:55)
[2018-11-16] MEDS ORDERED: MAGNESIUM OXIDE 400 MG TABLET PO PRN (12:00)
[2018-11-16] MEDS ORDERED: MAGNESIUM SULFATE 2 GM/WATER 50 ML IV PRN (12:00)
[2018-11-16] MEDS ORDERED: MAGNESIUM SULFATE 4 GM/WATER 100 ML IV PRN (12:00)
[2018-11-16 12:41] LABS: ALBUMIN 2.7 g/dL (3.4-5.0)
[2018-11-16 16:00] VITALS: BP 131/64
[2018-11-16 20:00] VITALS: BP 117/78
[2018-11-16] MEDS: ACETAMINOPHEN 325 MG TABLET PO PRN (20:27)
[2018-11-16] MEDS: OSELTAMIVIR PHOSPHATE 30 MG CAPSULE PO SCH (20:28)
[2018-11-16] MEDS: DONEPEZIL HCL 5 MG TABLET PO SCH (20:28)
[2018-11-17] VITALS (10 sets, daily range): BP systolic 70–158; BP diastolic 39–90
[2018-11-17] MEDS ORDERED: SODIUM CHLORIDE 0.9% 500 ML IV ONE ×2 (00:15→09:45)
[2018-11-17] MEDS: ALBUTEROL SULFATE 2.5 MG/0.5 ML NEB SOLUTION NEB PRN (01:24)
[2018-11-17] MEDS: IPRATROPIUM BROMIDE 0.5 MG/2.5 ML NEB SOLUTION NEB PRN (01:24)
[2018-11-17] MEDS: SODIUM CHLORIDE 0.9% 1,000 ML IV SCH ×2 (01:34→14:37)
[2018-11-17] MEDS: LEVOTHYROXINE SODIUM 88 MCG TABLET PO SCH (06:01)
[2018-11-17] MEDS: LOSARTAN POTASSIUM 50 MG TABLET PO SCH (08:26)
[2018-11-17] MEDS: MECLIZINE HCL 25 MG TABLET PO SCH (08:26)
[2018-11-17] MEDS: MONTELUKAST SODIUM 10 MG TABLET PO SCH (08:27)
[2018-11-17] MEDS: OSELTAMIVIR PHOSPHATE 30 MG CAPSULE PO SCH ×2 (08:27→20:41)
[2018-11-17] MEDS: CLOPIDOGREL BISULFATE 75 MG TABLET PO SCH (08:27)
[2018-11-17] MEDS: FAMOTIDINE 20 MG TABLET PO SCH (08:27)
[2018-11-17] MEDS: CALCIUM OYSTER SHELL 250 MG-VIT D3 125 UNITS TABLET PO SCH (08:28)
[2018-11-17] MEDS: FLUTICASONE/VILANTEROL 200-25 MCG/INH INHALER [14] IH SCH (08:29)
[2018-11-17] MEDS: ATORVASTATIN CALCIUM 10 MG TABLET PO SCH (08:29)
[2018-11-17] MEDS: MEMANTINE HCL 10 MG TABLET PO SCH ×2 (08:29→20:44)
[2018-11-17] MEDS: QUEtiapine FUMARATE 25 MG TABLET PO SCH (08:33)
[2018-11-17 10:59] LABS: GLUCOMETER DEV NAME(LOC) 5S.1; GLUCOSE,POINT OF CARE 107 MG/DL (70-110)
[2018-11-17] MEDS: ACETAMINOPHEN 325 MG TABLET PO PRN (20:41)
[2018-11-17] MEDS: DONEPEZIL HCL 5 MG TABLET PO SCH (20:44)
[2018-11-18 00:10] VITALS: BP 112/72
[2018-11-18] MEDS: SODIUM CHLORIDE 0.9% 1,000 ML IV SCH (03:42)
[2018-11-18 04:30] VITALS: BP 153/85
[2018-11-18] MEDS: LEVOTHYROXINE SODIUM 88 MCG TABLET PO SCH (06:15)
[2018-11-18 07:38] VITALS: BP 163/54
[2018-11-18] MEDS: CLOPIDOGREL BISULFATE 75 MG TABLET PO SCH (09:01)
[2018-11-18] MEDS: FLUTICASONE/VILANTEROL 200-25 MCG/INH INHALER [14] IH SCH (09:01)
[2018-11-18] MEDS: ATORVASTATIN CALCIUM 10 MG TABLET PO SCH (09:01)
[2018-11-18] MEDS: FAMOTIDINE 20 MG TABLET PO SCH (09:02)
[2018-11-18] MEDS: MECLIZINE HCL 25 MG TABLET PO SCH (09:02)
[2018-11-18] MEDS: OSELTAMIVIR PHOSPHATE 30 MG CAPSULE PO SCH (09:02)
[2018-11-18] MEDS: MONTELUKAST SODIUM 10 MG TABLET PO SCH (09:02)
[2018-11-18] MEDS: CALCIUM OYSTER SHELL 250 MG-VIT D3 125 UNITS TABLET PO SCH (09:03)
[2018-11-18] MEDS: MEMANTINE HCL 10 MG TABLET PO SCH (09:03)
[2018-11-18] MEDS ORDERED: OSEL30CA PO (11:35)
[2018-11-18] MEDS ORDERED: ZOLP5 PO (11:35)
== END 2018-11-18 13:05 | disposition home health service (06) | DRG 52 ==
LOC: EMS 17:12 → 5S 20:00
PROVIDERS: ADMIT Internal Medicine; ATTEND Internal Medicine
DX: G92 Toxic encephalopathy (principal); I95.9 Hypotension, unspecified; E86.0 Dehydration; E87.1 Hypo-osmolality and hyponatremia; F03.90 Unspecified dementia, unspecified severity, without behavioral disturbance, psychotic disturbance, mood disturbance, and anxiety; E05.90 Thyrotoxicosis, unspecified without thyrotoxic crisis or storm; T43.595A Adverse effect of other antipsychotics and neuroleptics, initial encounter; J11.1 Influenza due to unidentified influenza virus with other respiratory manifestations; E03.9 Hypothyroidism, unspecified; E78.5 Hyperlipidemia, unspecified; I10 Essential (primary) hypertension; K21.9 Gastro-esophageal reflux disease without esophagitis; J45.909 Unspecified asthma, uncomplicated; E78.00 Pure hypercholesterolemia, unspecified; F41.9 Anxiety disorder, unspecified; M19.90 Unspecified osteoarthritis, unspecified site; Z90.49 Acquired absence of other specified parts of digestive tract; Z90.710 Acquired absence of both cervix and uterus; Y92.098 Other place in other non-institutional residence as the place of occurrence of the external cause; Z79.899 Other long term (current) drug therapy; Z87.891 Personal history of nicotine dependence
CPT/HCPCS: 83605; 83735; 87040; 87804; 93005; 94640; 96365; 97162; G0378; J0696; J3475; J7030; J7040

== ENCOUNTER 2018-11-23 17:21 | Inpatient (IN) | payer OTHER ==
[~2018-11-23] VITALS: Ht 147.3 cm; Wt 51.5 kg
[~2018-11-23 17:21] MED LIST changes: +AMLO-511 PO; +AMOX1TAB15 PO; -MECL-111 PO; -QUET25TA PO; +ZOLP5 PO
[2018-11-23] MEDS ORDERED: METO50 PO (17:38)
[2018-11-23 18:13] LABS: BASOPHILS % (AUTO) 0.6 % (0.0-2.0); HEMATOCRIT 29.6 % (36-46); HEMOGLOBIN 9.7 g/dL (12.0-16.0); LYMPHOCYTES # (AUTO) 1.4 K/uL (1.0-4.8); LYMPHOCYTES % (AUTO) 22.7 % (22.0-44.0); MEAN CORPUSCULAR HGB CONC 32.7 G/dL (31.0-37.0); MEAN CORPUSCULAR VOLUME 86 fL (80-100); MONOCYTES # (AUTO) 0.6 K/uL (0.1-1.0); MONOCYTES % (AUTO) 9.3 % (2.0-9.0); NEUTROPHILS # (AUTO) 3.7 K/uL (1.8-7.7); NEUTROPHILS % (AUTO) 61.4 % (40.0-70.0); PLATELET COUNT (AUTO) 362 K/uL (150-450); RED BLOOD CELL COUNT(AUTO) 3.46 MIL/uL (4.00-5.20); RED CELL DISTRIBUTION WIDTH 14.3 % (11.5-14.5)
[2018-11-23 18:23] LABS: POTASSIUM 4.2 mmol/L (3.5-5.1)
[2018-11-23 18:32] LABS: ALBUMIN 2.3 g/dL (3.4-5.0); BILIRUBIN,TOTAL 0.3 mg/dL (0.1-1.0); TOTAL PROTEIN, SERUM 5.1 g/dL (6.4-8.2)
[2018-11-23] MEDS ORDERED: DOPamine HCL 400 MG/D5%-WATER 250 ML IV PRN (19:30)
[2018-11-23 20:21] LABS: INR 1.1 (0.9-1.1)
[2018-11-23] MEDS ORDERED: ONDANSETRON HCL 4 MG/2 ML VIAL IVP PRN (21:30)
[2018-11-23] MEDS ORDERED: 0.9% SODIUM CHLORIDE 10 ML SYRINGE IVP PRN ×2 (21:30→22:45)
[2018-11-23] MEDS ORDERED: ACETAMINOPHEN 325 MG TABLET PO PRN (21:30)
[2018-11-23 22:51] VITALS: BP 123/56
[2018-11-24] VITALS: BP 105/55
[2018-11-24 04:00] VITALS: BP 75/41
[2018-11-24 05:45] LABS: BASOPHILS % (AUTO) 0.7 % (0.0-2.0); EOSINOPHILS % (AUTO) 6.4 % (1.0-6.0); HEMATOCRIT 34.8 % (36-46); HEMOGLOBIN 11.4 g/dL (12.0-16.0); LYMPHOCYTES # (AUTO) 1.4 K/uL (1.0-4.8); LYMPHOCYTES % (AUTO) 18.2 % (22.0-44.0); MEAN CORPUSCULAR HEMOGLOBIN 27.9 pg (26.0-34.0); MEAN CORPUSCULAR HGB CONC 32.7 G/dL (31.0-37.0); MEAN CORPUSCULAR VOLUME 85 fL (80-100); MONOCYTES # (AUTO) 0.5 K/uL (0.1-1.0); MONOCYTES % (AUTO) 6.8 % (2.0-9.0); NEUTROPHILS # (AUTO) 5.3 K/uL (1.8-7.7); NEUTROPHILS % (AUTO) 67.9 % (40.0-70.0); PLATELET COUNT (AUTO) 455 K/uL (150-450); RED BLOOD CELL COUNT(AUTO) 4.07 MIL/uL (4.00-5.20); RED CELL DISTRIBUTION WIDTH 14.4 % (11.5-14.5)
[2018-11-24] MEDS: LEVOTHYROXINE SODIUM 88 MCG TABLET PO SCH (05:53)
[2018-11-24 06:17] LABS: B-TYPE NATRIURETIC PEPTIDE 95 pg/mL (0-100)
[2018-11-24 06:27] LABS: ALANINE AMINOTRANSFERASE 19 U/L (12-78); ALBUMIN 2.6 g/dL (3.4-5.0); ALKALINE PHOSPHATASE 80 U/L (46-116); ANION GAP 8 mmol/L (8-16); ASPARTATE AMINOTRANSFERASE 27 U/L (15-37); BILIRUBIN,TOTAL 0.3 mg/dL (0.1-1.0); CALCIUM, TOTAL 8.6 mg/dL (8.8-10.5); CARBON DIOXIDE 28 mmol/L (22-29); CHLORIDE 106 mmol/L (98-107); CREATINE KINASE, TOTAL ONLY 33 U/L (26-192); CREATININE 0.78 mg/dL (0.60-1.30); GLUCOSE,RANDOM 98 mg/dL (70-110); POTASSIUM 4.5 mmol/L (3.5-5.1); SODIUM SERUM 142 mmol/L (136-145); UREA NITROGEN, BLOOD 13 mg/dL (7-18)
[2018-11-24 06:28] LABS: GLOMERULAR FILTR. RATE CALC > 60 mL/min (>60)
[2018-11-24 08:00] VITALS: BP 149/75
[2018-11-24] MEDS: PANTOPRAZOLE SODIUM 40 MG/VIAL IVP SCH (08:51)
[2018-11-24] MEDS: AMOX TR/POT CLAV 500 MG/125 MG TABLET PO SCH ×2 (08:51→21:02)
[2018-11-24] MEDS: ATORVASTATIN CALCIUM 10 MG TABLET PO SCH (08:52)
[2018-11-24] MEDS: MEMANTINE HCL 10 MG TABLET PO SCH ×2 (08:52→21:02)
[2018-11-24] MEDS: CLOPIDOGREL BISULFATE 75 MG TABLET PO SCH (08:53)
[2018-11-24] MEDS ORDERED: DOPamine HCL 400 MG/D5%-WATER 250 ML IV PRN (11:07)
[2018-11-24 12:00] VITALS: BP 127/66
[2018-11-24 13:31] LABS: FREE T4 (FREE THYROXINE) 1.13 ng/dL (0.76-1.46); THYROID STIMULATING HORMONE 0.49 uIU/mL (0.36-3.74)
[2018-11-24 16:00] VITALS: BP 118/57
[2018-11-24 20:15] VITALS: BP 123/59
[2018-11-24] MEDS: DONEPEZIL HCL 5 MG TABLET PO SCH (21:02)
[2018-11-25 00:08] VITALS: BP 148/67
[2018-11-25 03:46] VITALS: BP 177/78
[2018-11-25] MEDS: LEVOTHYROXINE SODIUM 88 MCG TABLET PO SCH (05:37)
[2018-11-25 07:14] VITALS: BP 157/70
[2018-11-25] MEDS: CLOPIDOGREL BISULFATE 75 MG TABLET PO SCH (07:56)
[2018-11-25] MEDS: ATORVASTATIN CALCIUM 10 MG TABLET PO SCH (07:56)
[2018-11-25] MEDS: MEMANTINE HCL 10 MG TABLET PO SCH ×2 (07:56→23:18)
[2018-11-25] MEDS: DONEPEZIL HCL 5 MG TABLET PO SCH (07:56)
[2018-11-25] MEDS: PANTOPRAZOLE SODIUM 40 MG/VIAL IVP SCH (07:56)
[2018-11-25] MEDS: AMOX TR/POT CLAV 500 MG/125 MG TABLET PO SCH ×2 (07:56→23:18)
[2018-11-25 11:28] VITALS: BP 130/72
[2018-11-25 15:26] VITALS: BP 159/74
[2018-11-25 20:07] VITALS: BP 131/71
[2018-11-25] MEDS ORDERED: ZOLPIDEM TARTRATE 5 MG TABLET PO SCH (21:00)
[2018-11-26 00:39] VITALS: BP 167/71
[2018-11-26 04:28] VITALS: BP 154/97
[2018-11-26] MEDS: LEVOTHYROXINE SODIUM 88 MCG TABLET PO SCH (06:02)
[2018-11-26 07:13] VITALS: BP 126/77
[2018-11-26] MEDS: PANTOPRAZOLE SODIUM 40 MG/VIAL IVP SCH (08:45)
[2018-11-26] MEDS: ATORVASTATIN CALCIUM 10 MG TABLET PO SCH (08:46)
[2018-11-26] MEDS: CLOPIDOGREL BISULFATE 75 MG TABLET PO SCH (08:46)
[2018-11-26] MEDS: AMOX TR/POT CLAV 500 MG/125 MG TABLET PO SCH (08:46)
[2018-11-26] MEDS: MEMANTINE HCL 10 MG TABLET PO SCH (08:46)
[2018-11-26] MEDS ORDERED: MAGNESIUM OXIDE 400 MG TABLET PO ONE (10:30)
[2018-11-26] MEDS ORDERED: MAGNESIUM SULFATE 3 GM in DEXTROSE 5%-WATER 100 ML IV ONE (10:30)
[2018-11-26] MEDS ORDERED: MAGNESIUM OXIDE 400 MG TABLET ONE (10:33)
[2018-11-26 12:02] VITALS: BP 131/55
[2018-11-26] MEDS ORDERED: MAGOX PO (15:11)
[2018-11-30] MEDS ORDERED: ALENDRONATE SODIUM 70 MG TABLET PO SCH (06:30)
== END 2018-11-26 15:50 | disposition home or self-care (01) | DRG 812 ==
LOC: EMS 17:22 → ICU 21:33 → 5N 11-24 20:00
PROVIDERS: ADMIT Internal Medicine; ATTEND Internal Medicine
DX: T44.7X1A Poisoning by beta-adrenoreceptor antagonists, accidental (unintentional), initial encounter (principal); G93.41 Metabolic encephalopathy; F03.90 Unspecified dementia, unspecified severity, without behavioral disturbance, psychotic disturbance, mood disturbance, and anxiety; R00.1 Bradycardia, unspecified; E83.42 Hypomagnesemia; E05.90 Thyrotoxicosis, unspecified without thyrotoxic crisis or storm; E03.9 Hypothyroidism, unspecified; E78.00 Pure hypercholesterolemia, unspecified; J45.909 Unspecified asthma, uncomplicated; I10 Essential (primary) hypertension; F41.9 Anxiety disorder, unspecified; E78.5 Hyperlipidemia, unspecified; Z79.83 Long term (current) use of bisphosphonates; Z79.899 Other long term (current) drug therapy; Z90.710 Acquired absence of both cervix and uterus; Z90.49 Acquired absence of other specified parts of digestive tract; Z87.891 Personal history of nicotine dependence; Z82.49 Family history of ischemic heart disease and other diseases of the circulatory system
CPT/HCPCS: 83735; 84439; 84443; 87081; 93005; 96365; 99291; C9113; G0378; J1265; J3475; J7060

== ENCOUNTER 2019-08-22 21:18 | Inpatient (IN) | payer OTHER ==
[~2019-08-22] VITALS: Ht 137.2 cm; Wt 45.5 kg
[~2019-08-22 21:18] MED LIST changes: -ALEN70TA10 PO; -AMLO-511 PO; -AMOX1TAB15 PO; -ATOR10TA84 PO; +BRIN8DRO OP; -CALC-1009 PO; -CLOP75TA32 PO; -DONE5TAB5 PO; +LATA7.5D OU; -LEVO88TA7 PO; -LOSA50TA64 PO; -MEMA10TA11 PO; -MONT10TA21 PO; -UMEC62.5 IH; -ZOLP5 PO
[2019-08-22] MEDS ORDERED: LEVO88TA7 PO (21:33)
[2019-08-22] MEDS ORDERED: SODIUM CHLORIDE 0.9% 1,000 ML IV ONE (22:14)
[2019-08-22] MEDS ORDERED: ONDANSETRON HCL 4 MG/2 ML VIAL IVP ONE (22:15)
[2019-08-22 22:47] LABS: BASOPHILS % (AUTO) 0.1 % (0.0-2.0); EOSINOPHILS % (AUTO) 0.8 % (1.0-6.0); HEMATOCRIT 42.6 % (36-46); HEMOGLOBIN 14.1 g/dL (12.0-16.0); LYMPHOCYTES # (AUTO) 0.6 K/uL (1.0-4.8); LYMPHOCYTES % (AUTO) 5.4 % (22.0-44.0); MEAN CORPUSCULAR HEMOGLOBIN 29.1 pg (26.0-34.0); MEAN CORPUSCULAR HGB CONC 33.2 G/dL (31.0-37.0); MEAN CORPUSCULAR VOLUME 88 fL (80-100); MONOCYTES # (AUTO) 0.6 K/uL (0.1-1.0); MONOCYTES % (AUTO) 4.6 % (2.0-9.0); NEUTROPHILS # (AUTO) 10.6 K/uL (1.8-7.7); PLATELET COUNT (AUTO) 307 K/uL (150-450); RED BLOOD CELL COUNT(AUTO) 4.86 MIL/uL (4.00-5.20)
[2019-08-22 22:54] LABS: NEUTROPHILS % (AUTO) 89.1 % (40.0-70.0)
[2019-08-22 22:59] LABS: PROTHROMBIN TIME 10.3 SEC (9.4-11.6)
[2019-08-22 23:08] LABS: INFLUENZA TYPE A NEGATIVE FOR TYPE A (NEGATIVE); INFLUENZA TYPE B NEGATIVE FOR TYPE B (NEGATIVE)
[2019-08-22 23:08] LABS: CALCIUM, TOTAL 9.6 mg/dL (8.8-10.5); CREATININE 1.39 mg/dL (0.60-1.30); POTASSIUM 5.4 mmol/L (3.5-5.1)
[2019-08-22 23:11] LABS: PLATELET MORPHOLOGY COMMENT NORMAL
[2019-08-22] MEDS ORDERED: IOVERSOL 350 MG/ML 100 ML VIAL ONE (23:11)
[2019-08-22] MEDS ORDERED: SODIUM CHLORIDE 0.9% 100 ML ONE (23:12)
[2019-08-22 23:19] LABS: ALBUMIN 3.9 g/dL (3.4-5.0); BILIRUBIN,TOTAL 0.7 mg/dL (0.1-1.0); TOTAL PROTEIN, SERUM 7.8 g/dL (6.4-8.2)
[2019-08-23] MEDS ORDERED: GADOBUTROL 1 MMOL/ML 10 ML VIAL IVP ONE (00:15)
[2019-08-23] MEDS ORDERED: DiphenhydrAMINE HCL 50 MG/ML VIAL IVP ONE (00:30)
[2019-08-23] MEDS ORDERED: MORPHINE SULFATE 2 MG/ML SYRINGE IVP PRN ×2 (05:15→11:30)
[2019-08-23] MEDS ORDERED: ONDANSETRON HCL 4 MG/2 ML VIAL IVP PRN ×2 (05:15→11:30)
[2019-08-23] MEDS ORDERED: 0.9% SODIUM CHLORIDE 10 ML SYRINGE IVP PRN (05:15)
[2019-08-23] MEDS ORDERED: ACETAMINOPHEN 325 MG TABLET PO PRN ×2 (05:15→11:30)
[2019-08-23] MEDS: LORazepam 2 MG/ML VIAL IVP PRN ×2 (07:44→17:11)
[2019-08-23 08:04] LABS: BASOPHILS % (AUTO) 0.1 % (0.0-2.0); EOSINOPHILS % (AUTO) 1.3 % (1.0-6.0); HEMATOCRIT 37.9 % (36-46); HEMOGLOBIN 12.4 g/dL (12.0-16.0); LYMPHOCYTES # (AUTO) 0.7 K/uL (1.0-4.8); LYMPHOCYTES % (AUTO) 6.5 % (22.0-44.0); MEAN CORPUSCULAR HEMOGLOBIN 28.5 pg (26.0-34.0); MEAN CORPUSCULAR HGB CONC 32.6 G/dL (31.0-37.0); MEAN CORPUSCULAR VOLUME 87 fL (80-100); MONOCYTES # (AUTO) 0.5 K/uL (0.1-1.0); MONOCYTES % (AUTO) 4.1 % (2.0-9.0); PLATELET COUNT (AUTO) 263 K/uL (150-450); RED BLOOD CELL COUNT(AUTO) 4.34 MIL/uL (4.00-5.20)
[2019-08-23 08:17] LABS: CALCIUM, TOTAL 8.5 mg/dL (8.8-10.5); CREATININE 1.15 mg/dL (0.60-1.30); POTASSIUM 4.9 mmol/L (3.5-5.1)
[2019-08-23 08:22] LABS: ALBUMIN 3.2 g/dL (3.4-5.0); BILIRUBIN,TOTAL 0.6 mg/dL (0.1-1.0); TOTAL PROTEIN, SERUM 6.4 g/dL (6.4-8.2)
[2019-08-23] MEDS ORDERED: HYDROCODONE/ACETAMINOPHEN 5-325 MG TABLET PO PRN (11:30)
[2019-08-23] MEDS ORDERED: BISACODYL 10 MG RECTAL RECTAL SUPPOSITORY PR PRN (11:30)
[2019-08-23] MEDS ORDERED: MAGNESIUM HYDROXIDE SUSPENSION 30 ML UDCUP PO PRN (11:30)
[2019-08-23] MEDS ORDERED: ZOLPIDEM TARTRATE 5 MG TABLET PO PRN (11:30)
[2019-08-23] MEDS ORDERED: CLOP75TA3 PO (16:24)
[2019-08-23] MEDS ORDERED: DONE10TA8 PO (16:24)
[2019-08-23] MEDS ORDERED: QUET25TA PO (16:24)
[2019-08-23] MEDS ORDERED: XALA2.5OS OU (16:24)
[2019-08-23] MEDS ORDERED: QUET100T PO ×2 (16:24)
[2019-08-23] MEDS ORDERED: MEMA10TA11 PO (16:24)
[2019-08-23] MEDS ORDERED: LISI-660 PO (16:24)
[2019-08-23] MEDS ORDERED: LEVO88TA4 PO (16:24)
[2019-08-23] MEDS ORDERED: BRIN8DRO OP (16:24)
[2019-08-23] MEDS ORDERED: DONE5TAB5 PO (16:24)
[2019-08-23 16:47] VITALS: BP 169/89
[2019-08-23] MEDS: HEPARIN SODIUM,PORCINE 5,000 UNITS/ML VIAL SQ SCH ×2 (17:09→23:14)
[2019-08-23 19:48] VITALS: BP 131/59
[2019-08-23] MEDS: QUEtiapine FUMARATE 25 MG TABLET PO SCH (19:52)
[2019-08-23] MEDS: DOCUSATE SODIUM 100 MG CAPSULE PO SCH (19:52)
[2019-08-23] MEDS ORDERED: ALBUTEROL SULFATE HFA 90 MCG/PUFF 8 GM INHALER IH PRN (21:15)
[2019-08-24] VITALS (8 sets, daily range): BP systolic 103–177; BP diastolic 55–83
[2019-08-24] MEDS: LEVOTHYROXINE SODIUM 88 MCG TABLET PO SCH (05:24)
[2019-08-24] MEDS ORDERED: LEVOTHYROXINE SODIUM 88 MCG TABLET PO SCH (06:30)
[2019-08-24 07:41] LABS: APPEARANCE,URINE CLEAR (CLEAR); BILIRUBIN,URINE NEGATIVE (NEGATIVE); GLUCOSE, URINE (UA) NEGATIVE (NEGATIVE); KETONES,URINE NEGATIVE (NEGATIVE); LEUKOCYTE ESTERASE ,URINE NEGATIVE (NEGATIVE); NITRATE,URINE NEGATIVE (NEGATIVE); OCCULT BLOOD,URINE NEGATIVE (NEGATIVE); PH,URINE 5.5 (5.0-8.0); PROTEIN,URINE NEGATIVE (NEGATIVE); UROBILINOGEN,URINE 0.2 mg/dL (<=1.0)
[2019-08-24] MEDS: DOCUSATE SODIUM 100 MG CAPSULE PO SCH ×3 (09:00→21:00)
[2019-08-24] MEDS: PANTOPRAZOLE SODIUM 40 MG DR TABLET PO SCH (09:18)
[2019-08-24] MEDS: DONEPEZIL HCL 5 MG TABLET PO SCH (09:18)
[2019-08-24] MEDS: MEMANTINE HCL 10 MG TABLET PO SCH ×2 (09:18→23:30)
[2019-08-24] MEDS: HEPARIN SODIUM,PORCINE 5,000 UNITS/ML VIAL SQ SCH ×3 (09:19→23:30)
[2019-08-24] MEDS: QUEtiapine FUMARATE 25 MG TABLET PO SCH ×2 (09:19→23:32)
[2019-08-24 10:56] LABS: BASOPHILS % (AUTO) 0.6 % (0.0-2.0); EOSINOPHILS % (AUTO) 7.4 % (1.0-6.0); HEMATOCRIT 41.1 % (36-46); HEMOGLOBIN 13.8 g/dL (12.0-16.0); LYMPHOCYTES # (AUTO) 1.2 K/uL (1.0-4.8); LYMPHOCYTES % (AUTO) 23.8 % (22.0-44.0); MEAN CORPUSCULAR HEMOGLOBIN 29.5 pg (26.0-34.0); MEAN CORPUSCULAR HGB CONC 33.7 G/dL (31.0-37.0); MEAN CORPUSCULAR VOLUME 88 fL (80-100); MONOCYTES # (AUTO) 0.4 K/uL (0.1-1.0); MONOCYTES % (AUTO) 6.9 % (2.0-9.0); NEUTROPHILS # (AUTO) 3.2 K/uL (1.8-7.7); NEUTROPHILS % (AUTO) 61.3 % (40.0-70.0); PLATELET COUNT (AUTO) 255 K/uL (150-450); RED BLOOD CELL COUNT(AUTO) 4.68 MIL/uL (4.00-5.20); RED CELL DISTRIBUTION WIDTH 14.9 % (11.5-14.5)
[2019-08-24 11:11] LABS: ALANINE AMINOTRANSFERASE 19 U/L (12-78); ALBUMIN 3.5 g/dL (3.4-5.0); ALKALINE PHOSPHATASE 100 U/L (46-116); ANION GAP 5 mmol/L (8-16); ASPARTATE AMINOTRANSFERASE 21 U/L (15-37); BILIRUBIN,TOTAL 0.6 mg/dL (0.1-1.0); CALCIUM, TOTAL 8.8 mg/dL (8.8-10.5); CARBON DIOXIDE 29 mmol/L (22-29); CHLORIDE 106 mmol/L (98-107); CREATININE 0.79 mg/dL (0.60-1.30); GLUCOSE,RANDOM 77 mg/dL (70-110); POTASSIUM 4.7 mmol/L (3.5-5.1); SODIUM SERUM 140 mmol/L (136-145); TOTAL PROTEIN, SERUM 7.1 g/dL (6.4-8.2); UREA NITROGEN, BLOOD 11 mg/dL (7-18)
[2019-08-24 11:14] LABS: GLOMERULAR FILTR. RATE CALC > 60 mL/min (>60)
[2019-08-24] MEDS: CLOPIDOGREL BISULFATE 75 MG TABLET PO SCH (23:31)
[2019-08-24] MEDS: LATANOPROST 0.005% 2.5 ML OPHTHALMIC SOLUTION OU SCH (23:32)
[2019-08-25] MEDS: BRINZOLAMIDE 1% 10 ML OPHTHALMIC SUSPENSION OU SCH ×3 (00:47→21:13)
[2019-08-25] MEDS: TAMSULOSIN HCL 0.4 MG CAPSULE PO SCH ×3 (00:47→21:13)
[2019-08-25] MEDS: LISINOPRIL 5 MG TABLET PO SCH ×2 (00:47→08:55)
[2019-08-25 00:53] LABS: GLUCOMETER DEV NAME(LOC) 6N.1; GLUCOSE,POINT OF CARE 76 MG/DL (70-110)
[2019-08-25 05:11] VITALS: BP 158/74
[2019-08-25] MEDS: LEVOTHYROXINE SODIUM 88 MCG TABLET PO SCH (05:58)
[2019-08-25 08:02] VITALS: BP 140/73
[2019-08-25] MEDS: MEMANTINE HCL 10 MG TABLET PO SCH ×2 (08:54→21:13)
[2019-08-25] MEDS: MULTIVITAMINS WITH MINERALS, THERAPEUTIC TABLET PO SCH (08:54)
[2019-08-25] MEDS: PANTOPRAZOLE SODIUM 40 MG DR TABLET PO SCH (08:55)
[2019-08-25] MEDS: QUEtiapine FUMARATE 25 MG TABLET PO SCH ×2 (08:55→21:13)
[2019-08-25] MEDS: DOCUSATE SODIUM 100 MG CAPSULE PO SCH ×2 (08:55→21:13)
[2019-08-25] MEDS: HEPARIN SODIUM,PORCINE 5,000 UNITS/ML VIAL SQ SCH ×2 (08:56→16:00)
[2019-08-25] MEDS: DONEPEZIL HCL 5 MG TABLET PO SCH (09:10)
[2019-08-25 11:42] VITALS: BP 102/60
[2019-08-25 16:28] VITALS: BP 116/57
[2019-08-25] MEDS: LATANOPROST 0.005% 2.5 ML OPHTHALMIC SOLUTION OU SCH (21:13)
[2019-08-25] MEDS: CLOPIDOGREL BISULFATE 75 MG TABLET PO SCH (21:14)
[2019-08-25 21:15] VITALS: BP 118/61
[2019-08-25 23:19] VITALS: BP 120/82
[2019-08-26] MEDS: HEPARIN SODIUM,PORCINE 5,000 UNITS/ML VIAL SQ SCH ×2 (00:37→08:35)
[2019-08-26 04:00] VITALS: BP 128/86
[2019-08-26] MEDS: LEVOTHYROXINE SODIUM 88 MCG TABLET PO SCH (06:18)
[2019-08-26 08:00] VITALS: BP 146/83
[2019-08-26] MEDS: MEMANTINE HCL 10 MG TABLET PO SCH (08:35)
[2019-08-26] MEDS: DONEPEZIL HCL 5 MG TABLET PO SCH (08:35)
[2019-08-26] MEDS: QUEtiapine FUMARATE 25 MG TABLET PO SCH (08:36)
[2019-08-26] MEDS: LISINOPRIL 5 MG TABLET PO SCH (08:36)
[2019-08-26] MEDS: PANTOPRAZOLE SODIUM 40 MG DR TABLET PO SCH (08:36)
[2019-08-26] MEDS: TAMSULOSIN HCL 0.4 MG CAPSULE PO SCH (08:36)
[2019-08-26] MEDS: MULTIVITAMINS WITH MINERALS, THERAPEUTIC TABLET PO SCH (08:36)
[2019-08-26] MEDS: DOCUSATE SODIUM 100 MG CAPSULE PO SCH (08:37)
[2019-08-26] MEDS: BRINZOLAMIDE 1% 10 ML OPHTHALMIC SUSPENSION OU SCH (08:37)
[2019-08-26 11:02] VITALS: BP 145/74
[2019-08-26] MEDS ORDERED: DOCU-275 PO (13:23)
[2019-08-26] MEDS ORDERED: BISA10SU11 PR (13:23)
[2019-08-26] MEDS ORDERED: TAMS-13 PO (13:23)
[2019-08-26] MEDS ORDERED: CEPH125S PO (13:23)
== END 2019-08-26 14:51 | disposition home or self-care (01) | DRG 247 ==
LOC: EMS 21:18 → 6N 08-23 15:09 → 4E 08-24 18:12
PROVIDERS: ADMIT Internal Medicine; ATTEND Internal Medicine
DX: K56.600 Partial intestinal obstruction, unspecified as to cause (principal); E46 Unspecified protein-calorie malnutrition; K80.00 Calculus of gallbladder with acute cholecystitis without obstruction; R65.10 Systemic inflammatory response syndrome (SIRS) of non-infectious origin without acute organ dysfunction; I48.20 Chronic atrial fibrillation, unspecified; J44.9 Chronic obstructive pulmonary disease, unspecified; E11.9 Type 2 diabetes mellitus without complications; F03.90 Unspecified dementia, unspecified severity, without behavioral disturbance, psychotic disturbance, mood disturbance, and anxiety; K82.8 Other specified diseases of gallbladder; E03.9 Hypothyroidism, unspecified; E78.00 Pure hypercholesterolemia, unspecified; N39.0 Urinary tract infection, site not specified; E78.1 Pure hyperglyceridemia; E78.5 Hyperlipidemia, unspecified; I10 Essential (primary) hypertension; Z90.710 Acquired absence of both cervix and uterus; Z87.891 Personal history of nicotine dependence; Z79.899 Other long term (current) drug therapy; Z68.24 Body mass index [BMI] 24.0-24.9, adult
CPT/HCPCS: 51702; 70450; 74018; 74022; 74177; 74183; 76700; 82378; 86301; 87804; 93005; 96361; 96374; 96375; A9585; G0378; J1200; J1644; J2060; J2405; J7030; J7050

== ENCOUNTER 2020-05-02 10:40 | Emergency (ER) | payer OTHER ==
[~2020-05-02] VITALS: Ht 142.2 cm; Wt 50.5 kg
[~2020-05-02 10:40] MED LIST changes: +CLOP75TA3 PO; +DONE10TA8 PO; -LATA7.5D OU; +LEVO-72 PO; +LEVO88TA4 PO; +LISI-660 PO; +MEMA10TA11 PO; -OMEP20 PO; +QUET100T PO; +QUET25TA PO; +XALA2.5OS OU
[2020-05-02] MEDS ORDERED: DONE5TAB5 PO (10:55)
[2020-05-02 12:17] LABS: BASOPHILS % (AUTO) 0.7 % (0.0-2.0); EOSINOPHILS % (AUTO) 1.9 % (1.0-6.0); HEMOGLOBIN 13.4 g/dL (12.0-16.0); LYMPHOCYTES # (AUTO) 1.4 K/uL (1.0-4.8); LYMPHOCYTES % (AUTO) 13.9 % (22.0-44.0); MEAN CORPUSCULAR HGB CONC 33.6 G/dL (31.0-37.0); MEAN CORPUSCULAR VOLUME 89 fL (80-100); MONOCYTES % (AUTO) 10.1 % (2.0-9.0); NEUTROPHILS # (AUTO) 7.1 K/uL (1.8-7.7); NEUTROPHILS % (AUTO) 73.4 % (40.0-70.0); PLATELET COUNT (AUTO) 253 K/uL (150-450); RED BLOOD CELL COUNT(AUTO) 4.48 MIL/uL (4.00-5.20); RED CELL DISTRIBUTION WIDTH 14.5 % (11.5-14.5)
[2020-05-02 12:27] LABS: ANION GAP 4 mmol/L (8-16); CALCIUM, TOTAL 9.3 mg/dL (8.8-10.5); CARBON DIOXIDE 32 mmol/L (22-29); CHLORIDE 100 mmol/L (98-107); CREATININE 0.63 mg/dL (0.60-1.30); GLUCOSE,RANDOM 90 mg/dL (70-110); POTASSIUM 4.8 mmol/L (3.5-5.1); SODIUM SERUM 136 mmol/L (136-145); UREA NITROGEN, BLOOD 18 mg/dL (7-18)
[2020-05-02 12:28] LABS: GLOMERULAR FILTR. RATE CALC > 60 mL/min (>60)
[2020-05-02 12:32] LABS: PROTHROMBIN TIME 10.3 SEC (9.4-11.6)
[2020-05-02 12:34] LABS: ALANINE AMINOTRANSFERASE 22 U/L (12-78); ALBUMIN 3.8 g/dL (3.4-5.0); ALKALINE PHOSPHATASE 103 U/L (46-116); ASPARTATE AMINOTRANSFERASE 25 U/L (15-37); BILIRUBIN,TOTAL 0.6 mg/dL (0.1-1.0); LIPASE 159 U/L (73-393); TOTAL PROTEIN, SERUM 7.6 g/dL (6.4-8.2)
[2020-05-02 14:06] VITALS: BP 151/84
== END 2020-05-02 14:10 | disposition home or self-care (01) ==
LOC: EMS 10:45
DX: R10.9 Unspecified abdominal pain (principal); I10 Essential (primary) hypertension; F41.9 Anxiety disorder, unspecified; J44.9 Chronic obstructive pulmonary disease, unspecified; E78.00 Pure hypercholesterolemia, unspecified; F17.210 Nicotine dependence, cigarettes, uncomplicated; Z90.710 Acquired absence of both cervix and uterus; Z79.899 Other long term (current) drug therapy
CPT/HCPCS: 86850; 86900; 86901; 93005; 36415-L1; 36415-TC; 70450; 70450-TC; 71045-TC